=== PATIENT | male | born 1975 | race African-American/Black ===

== ENCOUNTER 2021-10-23 20:50 | Emergency (ER) | payer OTHER ==
[~2021-10-23] VITALS: Ht 177.8 cm; Wt 73.5 kg
[2021-10-23 22:00] LABS: PLATELET COUNT 265 K/uL (142-355)
[2021-10-23 22:09] LABS: POTASSIUM 3.7 mmol/L (3.6-5.2)
[2021-10-23 23:12] VITALS: BP 142/90; TEMP 98.7
== END 2021-10-23 23:12 | disposition home or self-care (01) ==
LOC: ED 20:50
PROVIDERS: Emergency Medicine Emergency Medical Services
DX: K42.9 Umbilical hernia without obstruction or gangrene (principal); K40.90 Unilateral inguinal hernia, without obstruction or gangrene, not specified as recurrent
CPT/HCPCS: 36415; 80053; 80307; 81000; 82150; 83690; 85027; 96360; 96375; 99284; J1885; Q9963